=== PATIENT | female | born 1995 | race African-American/Black ===

== ENCOUNTER 2021-05-31 07:38 | Outpatient (REF) | payer OTHER, SELFPAY | END 2021-05-31 07:39 | disposition home or self-care (01) | LOC: HO.LAB 07:38 | PROVIDERS: PCP Internal Medicine; Visit Provider Internal Medicine | DX: Z20.822 Contact with and (suspected) exposure to COVID-19 (principal) | CPT/HCPCS: C9803; U0003; U0005 ==